=== PATIENT | female | born 1960 | race Hispanic/Latino ===

== ENCOUNTER → 2019-09-11 | Outpatient (CLI) | payer OTHER ==
--- NOTE | 2019-09-11 11:43 | Diagnostic Imaging Report ---
Thyroid ultrasound. History: Thyroid nodules. Comparison: Prior images not available. Report from prior ultrasound dated 09/02/2014 and biopsy 09/08/2015 are available for comparison. Discussion: Transverse and longitudinal images of the thyroid were obtained demonstrating normal echogenicity of the thyroid. Right thyroid lobe - 4.4 x 1.1 x 1.1 cm. 0.6 x 0.3 x 0.4 cm cyst in the lower pole. 0.5 x 0.4 x 0.5 cm calcification in the interpolar region. Left thyroid lobe - 5.3 x 2.2 x 2.4 cm. Heterogeneous nodule with calcification and cystic components measuring 3.0 x 2.1 x 2.5 cm. Hypoechoic nodule measuring 0.7 x 0.4 x 0.7 cm in the upper pole. Isthmus - 4 mm in thickness. 1.0 x 0.5 x 0.7 cm oval hypoechoic nodule. IMPRESSION: Mild thyromegaly with bilateral nodules and cysts. By comparison with prior reports, right-sided nodule has decreased in size and left-sided nodule is grossly unchanged. Both of these were previously biopsied. Signed by: Shaji Lamar on 09/11/2019 11:40 AM
== END ==
LOC: US 10:11
DX: E04.2 Nontoxic multinodular goiter (principal)
CPT/HCPCS: 76536